=== PATIENT | female | born 1970 | race African-American/Black ===

== ENCOUNTER 2020-07-15 20:42 | Emergency (ER) | payer BC, OTHER ==
[2020-07-15] MEDS ORDERED: Lidocaine 1% (PF) 30 ML VIAL ONE (21:01)
[2020-07-15] MEDS ORDERED: Boostrix 0.5 ML (Tdap) VIAL ONE (21:01)
[2020-07-15] MEDS ORDERED: Bacitracin 1 PK ONE (21:16)
== END 2020-07-15 21:20 | disposition home or self-care (01) ==
LOC: NAV ERS 20:42
DX: S81.811A Laceration without foreign body, right lower leg, initial encounter (principal); W25.XXXA Contact with sharp glass, initial encounter
CPT/HCPCS: 12001; 90715; J2001